=== PATIENT | female | born 1970 | race Caucasian/White ===

== ENCOUNTER → 2019-03-30 | Outpatient (CLI) | payer BC ==
--- NOTE | 2019-04-17 18:24 | P.PN ---
Progress Note - Text Progress Note Date: 03/09/19 This is a report on the 14 day event monitor that was started on March 30. Baseline EKG showed a sinus rhythm with normal IA interval, QRS duration. Patient remained in sinus rhythm with episodes of sinus tachycardia. The maximal sinus tachycardia rate was 153. Patient complained of palpitation and skipping of the heart beats and irregular heartbeats on many occasions, not correlating with any significant cardiac arrhythmias. Final impression: #1. Baseline rhythm is sinus #2 episodes of sinus tachycardia #3. Several episodes of palpitations and irregular heart beats, not correlating with any cardiac events.
--- NOTE | 2019-04-20 13:55 | EM ---
This is a report on the 14 day event monitor that was started on March 30. Baseline EKG showed a sinus rhythm with normal DE interval, QRS duration. Patient remained in sinus rhythm with episodes of sinus tachycardia. The maximal sinus tachycardia rate was 153. Patient complained of palpitation and skipping of the heart beats and irregular heartbeats on many occasions, not correlating with any significant cardiac arrhythmias. Final impression: #1. Baseline rhythm is sinus #2 episodes of sinus tachycardia #3. Several episodes of palpitations and irregular heart beats, not correlating with any cardiac events. MTDD
== END | disposition home or self-care (01) ==
LOC: RADECHMAIN 11:56
PROVIDERS: ATTEND Family Medicine
DX: R00.0 Tachycardia, unspecified (principal)
CPT/HCPCS: 93270

== ENCOUNTER → 2019-04-07 | Outpatient (CLI) | payer BC ==
[2019-04-07 15:53] VITALS: BP 135/89; PULSE 63; RESP 16; TEMP 99; BMI 29.4
--- NOTE | 2019-04-07 22:24 | P.BASOAP ---
Subjective Progress Note Date: 04/07/19 Principal diagnosis: Morbid obesity 48-year-old female known to our service. Patient is interested in lap band fill. She was having some dysphagia last year but that resolved spontaneously. Recently she was on steroids for bronchitis and noticed weight gain following that. Previously she underwent EGD with no abnormalities noted. Objective - Vital Signs Vital signs: Vital Signs Temp 99 F 04/07/19 15:50 Pulse 63 04/07/19 15:50 Resp 16 04/07/19 15:50 BP 135/89 04/07/19 15:50 Pulse Ox Intake & Output 04/07/19 04/07/19 04/08/19 06:59 18:59 06:59 Weight 77.706 kg - Exam Abdomen: Soft, nontender, nondistended Assessment/Plan (1) Morbid obesity Narrative/Plan: Patient interested in band adjustment. 0.5 cc was added for a total of 6 cc at this time. Patient will contact me for follow-up. Plan: Date: 04/07/19 Initial Weight: 77.706 kg Initial BMI: 29.4 Current Weight: 77.706 kg Current BMI: 29.4 Type of Surgery: Total Volume in Band: 0.5 Previous Volume: 0 Volume Removed: Volume Added: 0.5 Band Size:
== END | disposition home or self-care (01) ==
LOC: BARWHC3 15:12
PROVIDERS: ATTEND Surgery
DX: E66.01 Morbid (severe) obesity due to excess calories (principal); Z68.29 Body mass index [BMI] 29.0-29.9, adult; J40 Bronchitis, not specified as acute or chronic
CPT/HCPCS: 99212

== ENCOUNTER → 2019-05-19 | Outpatient (CLI) | payer BC ==
[2019-05-19 14:27] VITALS: BP 135/88; PULSE 81; RESP 16; BMI 27.1
[2019-05-19 14:51] VITALS: TEMP 98
--- NOTE | 2019-05-19 14:51 | P.BASOAP ---
Subjective Progress Note Date: 05/19/19 Principal diagnosis: Morbid obesity Patient was last seen 1 month ago. Her band was tightened from 5.5-6 mL. She admits the first few days were somewhat "rough". She said after 3-4 days she had become accustomed to the tightness of her band. Starting last Saturday she felt food gets stuck. Had persistent vomiting from Saturday evening until or Saturday of last week. She was then seen by her primary care physician. She was prescribed Zofran. She thought it was related to gastroenteritis. Zofran helped for a few days but starting again yesterday dysphagia returned. Denies pain. Here to have band adjusted. Objective - Vital Signs Vital signs: Vital Signs Temp 98 F 05/19/19 14:25 Pulse 81 05/19/19 14:25 Resp 16 05/19/19 14:25 BP 135/88 05/19/19 14:25 Pulse Ox Intake & Output 05/18/19 05/19/19 05/19/19 18:59 06:59 18:59 Weight 71.668 kg - Exam Abdomen: Soft, nontender, nondistended Assessment/Plan (1) Morbid obesity Narrative/Plan: Patient with dysphagia related to gastric obstruction from recent band adjustment and transient foreign body. Patient not interested in having the band empty. We compromised on removing 1.5 mL of fluid at this time. Patient states she will contact me if that does not correct the problem completely.The patient's lap band port was palpated. The site was aseptically prepped. The Porter needle was advanced into the port. A total of 1.5 ml of fluid was removed for a total of 4.5 mL. Pressure was held and a sterile dressing was applied. Plan: Date: 05/19/19 Initial Weight: 77.706 kg Initial BMI: 29.4 Current Weight: 71.668 kg Current BMI: 27.1 Type of Surgery: Total Volume in Band: 6.0 Previous Volume: Volume Removed: Volume Added: Band Size:
== END ==
LOC: BARWHC3 14:15
PROVIDERS: ATTEND Surgery
DX: E66.01 Morbid (severe) obesity due to excess calories (principal); R13.10 Dysphagia, unspecified; Z68.27 Body mass index [BMI] 27.0-27.9, adult
CPT/HCPCS: 99212

== ENCOUNTER → 2019-09-08 | Outpatient (CLI) | payer BC ==
[2019-09-08 15:41] VITALS: BP 126/82; PULSE 71; RESP 16; TEMP 98.2; BMI 30.2
--- NOTE | 2019-09-08 15:51 | P.BASOAP ---
Subjective Progress Note Date: 09/08/19 Principal diagnosis: Morbid obesity Patient returns for recheck. Since her band now feels loose. She was too tight when she was at 6 mL. 1.5 was removed. Ever since then her hunger has been increasing. She has gained weight. Weight 1 from 158-176. No heartburn. No nausea or vomiting. No reflux. No night cough. She never did have her esophagram that we had ordered. Objective - Vital Signs Vital signs: Vital Signs Temp 98.2 F 09/08/19 15:39 Pulse 71 09/08/19 15:39 Resp 16 09/08/19 15:39 BP 126/82 09/08/19 15:39 Pulse Ox Intake & Output 09/07/19 09/08/19 09/08/19 18:59 06:59 18:59 Weight 79.832 kg - Exam Abdomen: Soft, nontender, nondistended Assessment/Plan (1) Morbid obesity Narrative/Plan: Patient would like 0.5 mL added to the band. She is agreeable to esophagram next visit. Under sterile conditions 0.5 mL of saline was added to her band through a Porter needle. She has a total of 5 mL at this time. Tolerating water. Plan esophagram next visit 2 months. Plan: Date: 09/08/19 Initial Weight: 77.706 kg Initial BMI: 29.4 Current Weight: 79.832 kg Current BMI: 30.2 Type of Surgery: Total Volume in Band: 4.5 Previous Volume: Volume Removed: Volume Added: Band Size:
== END | disposition home or self-care (01) ==
LOC: BARWHC3 15:28
PROVIDERS: ATTEND Surgery
DX: Z46.51 Encounter for fitting and adjustment of gastric lap band (principal); E66.01 Morbid (severe) obesity due to excess calories; Z68.30 Body mass index [BMI] 30.0-30.9, adult; Z98.84 Bariatric surgery status
CPT/HCPCS: 99212

== ENCOUNTER → 2019-12-02 | Outpatient (CLI) | payer BC ==
--- NOTE | 2019-12-02 11:08 | FL ---
EXAMINATION TYPE: FL barium swallow DATE OF EXAM: 12/02/2019 LAP BANDING LIMITED ESOPHAGRAM: CLINICAL HISTORY: History of lap band 2007 with episode of dysphagia roughly one year earlier. Sympt oms improved after scoping and consultation with surgeon. Fluid was removed several months ago with i mprovement in symptoms per patient. TECHNIQUE: Limited esophagram is performed utilizing 2-3 oz of contrast. 8 seconds of fluoroscopic t eliceo utilized. 18 spot images saved. COMPARISON: None. FINDINGS: Pre-procedure core cutter image shows lap band in satisfactory position in proximal stomach ju st below the gastroesophageal junction. The patient then drank oral contrast. There is good flow of contrast along the course of the esophagu s. There is good flow of contrast along the course of the lap band, there is no evidence of contrast extravasation to suggest leak. There is no lap band slippage appreciated. IMPRESSION: No evidence of lap band slippage or significant obstruction.
== END | disposition home or self-care (01) ==
LOC: RADUSWWP 10:10
PROVIDERS: ATTEND Surgery
DX: R13.10 Dysphagia, unspecified (principal)
CPT/HCPCS: 74220

== ENCOUNTER → 2019-12-22 | Outpatient (CLI) | payer BC ==
[2019-12-22 15:06] VITALS: BP 130/93; PULSE 79; RESP 16; TEMP 98.7; BMI 29.7
--- NOTE | 2019-12-22 16:02 | P.BASOAP ---
Subjective Progress Note Date: 12/22/19 Principal diagnosis: Morbid obesity Patient doing well. Says she doesn't feel enough restriction. She was too tight at 6 mL. Last visit she went from 4.5-5 mL. Recent upper GI 2 weeks ago shows no evidence of leak or obstruction. She would like a fill. Objective - Vital Signs Vital signs: Vital Signs Temp 98.7 F 12/22/19 15:04 Pulse 79 12/22/19 15:04 Resp 16 12/22/19 15:04 BP 130/93 12/22/19 15:04 Pulse Ox Intake & Output 12/21/19 12/22/19 12/22/19 18:59 06:59 18:59 Weight 78.471 kg - Exam Abdomen: Soft, nontender, nondistended Assessment/Plan (1) Morbid obesity Narrative/Plan: Patient overall doing fairly well. She describes decreased restriction. Will increase to 5.3 mL. The patient's lap band port was palpated. The site was aseptically prepped. The Porter needle was advanced into the port. A total of 0.3 ml of fluid was added for a total of 5.3 mL. Pressure was held and a sterile dressing was applied. Plan: Date: 12/22/19 Initial Weight: 77.706 kg Initial BMI: 29.4 Current Weight: 78.471 kg Current BMI: 29.7 Type of Surgery: Total Volume in Band: 5.0 Previous Volume: Volume Removed: Volume Added: Band Size:
== END | disposition home or self-care (01) ==
LOC: BARWHC3 14:55
PROVIDERS: ATTEND Surgery
DX: E66.01 Morbid (severe) obesity due to excess calories (principal); Z98.84 Bariatric surgery status; Z68.29 Body mass index [BMI] 29.0-29.9, adult
CPT/HCPCS: 99212